=== PATIENT | male | born 1985 | race Caucasian/White ===

== ENCOUNTER 2017-06-02 20:07 | Emergency (ER) | payer OTHER ==
[2017-06-02 20:17] VITALS: BP 130/80
[2017-06-02] MEDS ORDERED: Ibuprofen TAB* 600 MG PO ONE (20:28)
--- NOTE | 2017-06-02 20:28 | UC ---
Lower Extremity/Ankle HPI - HPI Summary HPI Summary: Patient got foot caught in a hole, twisted it, felt a pop and now cant bear weight, pain along the top of the foot and in the bottom of the lower leg. - History of Current Complaint Chief Complaint: UCLowerExtremity Stated Complaint: LEFT ANKLE/FOOT INJURY Time Seen by Provider: 06/02/17 20:23 Hx Obtained From: Patient Onset/Duration: Sudden Onset, Lasting Days Severity Initially: Severe Severity Currently: Severe Aggravating Factor(s): Standing, Ambulation Alleviating Factor(s): Rest Able to Bear Weight: No - Allergies/Home Medications Allergies/Adverse Reactions: Allergies Allergy/AdvReac Type Severity Reaction Status Date / Time Amoxicillin Allergy Unknown Verified 06/02/17 20:17 Reaction Details Cefaclor [From [facility]] Allergy Anaphylatic Verified 06/02/17 20:17 Shock Home Medications: Home Medications buPROPion TAB* [Wellbutrin TAB*] 300 mg PO DAILY 06/02/17 [History Confirmed ] risperiDONE TAB* [RisperDAL*] 2 mg PO BEDTIME 06/02/17 [History Confirmed ] PMH/Surg Hx/FS Hx/Imm Hx Previously Healthy: Yes - Surgical History Surgical History: Yes Surgery Procedure, Year, and Place: fatty tissue abdomen at 2 mos old - Family History Known Family History: Negative: Hypertension - Social History Alcohol Use: Rare Substance Use Type: None Smoking Status (MU): Heavy Every Day Tobacco Smoker Type: Cigarettes Amount Used/How Often: 1 pk daily Household Exposure Type: Cigarettes Review of Systems Constitutional: Negative Skin: Negative Eyes: Negative ENT: Negative Respiratory: Negative Cardiovascular: Negative Gastrointestinal: Negative Genitourinary: Negative Motor: Negative Musculoskeletal: Arthralgia, Decreased ROM, Edema, Myalgia Neurological: Negative Psychological: Negative All Other Systems Reviewed And Are Negative: Yes Physical Exam Triage Information Reviewed: Yes Appearance: Well-Appearing, Well-Nourished, Pain Distress Vital Signs: Initial Vital Signs Temp 98 F 06/02/17 20:12 Pulse 71 06/02/17 20:12 Resp 14 06/02/17 20:12 BP 130/80 06/02/17 20:12 Pulse Ox 98 06/02/17 20:12 Vital Signs Reviewed: Yes Eye Exam: Normal ENT Exam: Normal Dental Exam: Normal Respiratory Exam: Normal Respiratory: Positive: Chest non-tender, Lungs clear, Normal breath sounds Cardiovascular Exam: Normal Cardiovascular: Positive: RRR, No Murmur, Pulses Normal Abdominal Exam: Normal Abdomen Description: Positive: Nontender, No Organomegaly, Soft Musculoskeletal: Positive: Strength Limited @ - in left ankle and foot, ROM Limited @ - cant move foot without pain, cant bear weight, Edema @ - left ankle Neurological Exam: Normal Psychological Exam: Normal Skin Exam: Normal Lower Extremity Course/Dx - Course Course Of Treatment: hx obtained, exam performed ,meds reviewed, xray obtained neg, flynn and gel splint applied - Differential Dx/Diagnosis Differential Diagnosis/HQI/PQRI: Dislocation, Fracture (Closed), Sprain, Strain Provider Diagnoses: left ankle sprain Discharge - Discharge Plan Condition: Stable Disposition: HOME Patient Education Materials: Ankle Sprain (ED) Additional Instructions: 1. use the flynn and splint for support 2. Ibuprofen for pain 3. elevate at rest. 4. follow up for any worsening symptoms
--- NOTE | 2017-06-02 20:48 | RAD ---
HISTORY: Left ankle injury, pain COMPARISONS: August 02, 2013 VIEWS: 3, Frontal, lateral, and oblique views of the left ankle lateral, and reformatted or watch FINDINGS: BONE DENSITY: Normal. BONES: There is no displaced fracture. JOINTS: There is no arthropathy. ALIGNMENT: There is no dislocation. SOFT TISSUES: There is circumferential soft tissue swelling. OTHER FINDINGS: None. IMPRESSION: SOFT TISSUE SWELLING. NO ACUTE OSSEOUS INJURY. IF SYMPTOMS PERSIST, RECOMMEND REPEAT IMAGING.
== END 2017-06-02 21:03 | disposition home or self-care (01) ==
LOC: UCCORT 20:07
DX: S93.402A Sprain of unspecified ligament of left ankle, initial encounter (principal); X50.1XXA Overexertion from prolonged static or awkward postures, initial encounter; Y93.9 Activity, unspecified; Y92.89 Other specified places as the place of occurrence of the external cause; Z88.1 Allergy status to other antibiotic agents; F17.210 Nicotine dependence, cigarettes, uncomplicated
CPT/HCPCS: 99213; A9270-GY; G0463